=== PATIENT | male | born 1935 | race Caucasian/White ===

== ENCOUNTER 2019-01-28 15:53 | Emergency (ER) | payer OTHER, MEDICAID ==
[~2019-01-28] VITALS: Ht 175.3 cm; Wt 78.0 kg
[2019-01-28 15:55] VITALS: BP_SYST 177
[2019-01-28] MEDS ORDERED: DIPHENOXYLATE HCL/ATROP SULF 2.5 MG TAB PO ONE (16:30)
[2019-01-28 17:08] LABS: BILIRUBIN,URINE NEGATIVE (NEGATIVE); BLOOD, URINE 3+ (NEGATIVE); CLARITY/URINE SL HAZY (CLEAR); COLOR,URINE YELLOW (YELLOW); GLUCOSE,URINE NEGATIVE (NEGATIVE); KETONES,URINE TRACE (NEGATIVE); LEUKOCYTE ESTERASE ,URINE NEGATIVE (NEGATIVE); NITRITE, URINE NEGATIVE (NEGATIVE); PROTEIN URINE 2+ (NEGATIVE)
[2019-01-28 17:17] LABS: BACTERIA,URINE FEW /HPF (None Seen); MUCUS,URINE None Seen /LPF (None Seen); RBC,URINE 50-80 /HPF (0-3); WBC,URINE 0-3 /HPF (0-3)
[2019-01-28 17:19] LABS: ANION GAP 7 (5-15); CHLORIDE 103 mmol/L (98-107); CREATININE 1.29 mg/dL (0.55-1.30); GLUCOSE 122 mg/dL (70-99); POTASSIUM 4.8 mmol/L (3.5-5.1); SODIUM SERUM 136 mmol/L (136-145); UREA NITROGEN, BLOOD 18 mg/dL (8-21)
[2019-01-28 17:24] LABS: ALANINE AMINOTRANSFERASE 18 U/L (12-78); ALBUMIN 3.8 g/dL (3.4-4.8); ASPARTATE AMINOTRANSFERASE 18 U/L (10-37); TOTAL BILIRUBIN 0.6 mg/dL (0.0-1.0)
[2019-01-28 17:26] LABS: BASOPHILS % (AUTO) 0.3 % (0.0-2.0); HEMATOCRIT 38.6 % (36-54); HEMOGLOBIN 12.9 g/dL (14.0-18.0); LYMPHOCYTES # (AUTO) 0.2 K/uL (1.0-5.5); LYMPHOCYTES % (AUTO) 3.5 % (20.5-51.5); MEAN CORPUSCULAR HEMOGLOBIN 30 pg (27-31); MEAN CORPUSCULAR HGB CONC 34 % (32-36); MEAN CORPUSCULAR VOLUME 89 fL (79.0-98.0); MONOCYTES # (AUTO) 0.3 K/uL (0.0-1.0); MONOCYTES % (AUTO) 4.7 % (1.7-9.3); NEUTROPHILS # (AUTO) 6.1 K/uL (1.8-7.7); NEUTROPHILS % (AUTO) 91.5 % (40.0-70.0); PLATELET COUNT (AUTO) 130 K/uL (130-430); RED BLOOD CELL COUNT(AUTO) 4.36 MIL/uL (4.2-6.2); RED CELL DISTRIBUTION WIDTH 14.4 % (9.0-15.0); WHITE BLOOD COUNT (AUTO) 6.6 K/uL (4.8-10.8)
[2019-01-28 20:20] VITALS: BP_SYST 168
== END 2019-01-28 20:20 | disposition home or self-care (01) ==
LOC: SED 15:53
DX: K52.9 Noninfective gastroenteritis and colitis, unspecified (principal); R33.9 Retention of urine, unspecified
CPT/HCPCS: 36415; 71045; 80053; 81000-TC; 84484; 85025; 93005; 99284

== ENCOUNTER 2019-02-23 11:17 | Inpatient (IN) | payer OTHER, MEDICAID ==
[~2019-02-23] VITALS: Ht 175.3 cm; Wt 63.5 kg
[2019-02-23 11:17] VITALS: BP_SYST 153
[2019-02-23] MEDS ORDERED: NACL 0.9% 1,000 ML IV ONE ×2 (11:30→13:00)
[2019-02-23] MEDS ORDERED: ONDANSETRON HCL 4 MG/2 ML VIAL IVP ONE (11:30)
[2019-02-23 11:53] LABS: HEMATOCRIT 46.7 % (36-54); LYMPHOCYTES # (AUTO) 0.2 K/uL (1.0-5.5); LYMPHOCYTES % (AUTO) 1.5 % (20.5-51.5); MEAN CORPUSCULAR HEMOGLOBIN 30 pg (27-31); MEAN CORPUSCULAR HGB CONC 34 % (32-36); MEAN CORPUSCULAR VOLUME 88 fL (79.0-98.0); MONOCYTES # (AUTO) 1.4 K/uL (0.0-1.0); MONOCYTES % (AUTO) 12.8 % (1.7-9.3); NEUTROPHILS # (AUTO) 9.3 K/uL (1.8-7.7); NEUTROPHILS % (AUTO) 85.7 % (40.0-70.0); PLATELET COUNT (AUTO) 189 K/uL (130-430); RED BLOOD CELL COUNT(AUTO) 5.31 MIL/uL (4.2-6.2); WHITE BLOOD COUNT (AUTO) 10.8 K/uL (4.8-10.8)
[2019-02-23 12:08] LABS: ANION GAP 12 (5-15); CALCIUM 9.4 mg/dL (8.4-11.0); CHLORIDE 98 mmol/L (98-107); CREATININE 1.79 mg/dL (0.55-1.30); GLUCOSE 143 mg/dL (70-99); POTASSIUM 3.8 mmol/L (3.5-5.1); SODIUM SERUM 133 mmol/L (136-145); UREA NITROGEN, BLOOD 38 mg/dL (8-21)
[2019-02-23 12:24] LABS: ALANINE AMINOTRANSFERASE 26 U/L (12-78); ALBUMIN 3.1 g/dL (3.4-4.8); ASPARTATE AMINOTRANSFERASE 41 U/L (10-37); TOTAL BILIRUBIN 0.4 mg/dL (0.0-1.0)
[2019-02-23] MEDS ORDERED: ACETAMINOPHEN 500 MG TABLET PO ONE (12:30)
[2019-02-23] MEDS ORDERED: CIPR-211 PO (12:41)
[2019-02-23] MEDS ORDERED: TAMS-11 PO (12:41)
[2019-02-23] MEDS ORDERED: cefTRIAXone 1 GM IVPB PREMIX 50 ML IV ONE (13:00)
[2019-02-23 14:17] LABS: BILIRUBIN,URINE NEGATIVE (NEGATIVE); BLOOD, URINE 3+ (NEGATIVE); CLARITY/URINE HAZY (CLEAR); COLOR,URINE YELLOW (YELLOW); GLUCOSE,URINE NEGATIVE (NEGATIVE); KETONES,URINE NEGATIVE (NEGATIVE); LEUKOCYTE ESTERASE ,URINE 1+ (NEGATIVE); NITRITE, URINE NEGATIVE (NEGATIVE); PROTEIN URINE 2+ (NEGATIVE); UROBILINOGEN,URINE 0.2 (0.2-1.0)
[2019-02-23 14:30] LABS: BACTERIA,URINE MODERATE /HPF (None Seen); RBC,URINE 20-50 /HPF (0-3)
[2019-02-23 14:31] LABS: CALCIUM OXALATE CRYSTALS,UR 0-10 /HPF (None Seen); FINE GRANULAR CASTS,URINE 0-10 /LPF (None Seen)
[2019-02-23] MEDS ORDERED: ZOLPIDEM TARTRATE 5 MG TABLET PO PRN (15:00)
[2019-02-23] MEDS ORDERED: ONDANSETRON HCL 4 MG/2 ML VIAL IVP PRN (15:00)
[2019-02-23] MEDS ORDERED: POTASSIUM CHLORIDE 20 MEQ TAB.PRT.SR PO PRN (15:00)
[2019-02-23] MEDS ORDERED: MUPIROCIN 2% TOPICAL OINTMENT 22 GM NS PRN (15:00)
[2019-02-23] MEDS ORDERED: MAGNESIUM SULFATE 50 ML IV PRN (15:00)
[2019-02-23] MEDS ORDERED: MORPHINE 2 MG/ML INJ. SYRINGE IVP PRN ×2 (15:00)
[2019-02-23] MEDS ORDERED: LORazepam 2 MG/ML VIAL IVP PRN (15:00)
[2019-02-23] MEDS ORDERED: DOCUSATE SODIUM 100 MG CAPSULE PO PRN (15:00)
[2019-02-23] MEDS ORDERED: amLODIPine BESYLATE 10 MG TABLET PO ONE (15:00)
[2019-02-23] MEDS ORDERED: ACETAMINOPHEN 325 MG TABLET PO PRN (15:00)
[2019-02-23 15:04] VITALS: BP_SYST 135
[2019-02-23] MEDS ORDERED: cefTRIAXone 1 GM in D5W 50 ML IV SCH (16:00)
[2019-02-23 16:31] VITALS: BP_SYST 141
[2019-02-23] MEDS: NACL 0.9% 1,000 ML IV SCH (16:49)
[2019-02-23 20:00] VITALS: BP_SYST 152
[2019-02-23] MEDS: HEPARIN SODIUM,PORCINE 5000 UNITS/ML VIAL SUBCUT SCH (21:09)
[2019-02-23 23:34] VITALS: BP_SYST 141
[2019-02-24] MEDS: NACL 0.9% 1,000 ML IV SCH ×2 (00:57→08:45)
[2019-02-24 05:42] LABS: ALANINE AMINOTRANSFERASE 25 U/L (12-78); ALBUMIN 2.4 g/dL (3.4-4.8); ANION GAP 8 (5-15); ASPARTATE AMINOTRANSFERASE 38 U/L (10-37); CALCIUM 7.8 mg/dL (8.4-11.0); CHLORIDE 108 mmol/L (98-107); CREATININE 1.19 mg/dL (0.55-1.30); GLUCOSE 94 mg/dL (70-99); POTASSIUM 4.1 mmol/L (3.5-5.1); SODIUM SERUM 141 mmol/L (136-145); THYROID STIMULATING HORMONE 1.31 uIu/mL (0.36-3.74); TOTAL BILIRUBIN 0.2 mg/dL (0.0-1.0); UREA NITROGEN, BLOOD 25 mg/dL (8-21)
[2019-02-24 06:11] LABS: BASOPHILS % (AUTO) 0.2 % (0.0-2.0); EOSINOPHILS % (AUTO) 0.1 % (0.0-4.0); HEMATOCRIT 37.9 % (36-54); HEMOGLOBIN 12.9 g/dL (14.0-18.0); LYMPHOCYTES # (AUTO) 0.5 K/uL (1.0-5.5); LYMPHOCYTES % (AUTO) 6.5 % (20.5-51.5); MEAN CORPUSCULAR HEMOGLOBIN 30 pg (27-31); MEAN CORPUSCULAR HGB CONC 34 % (32-36); MEAN CORPUSCULAR VOLUME 88 fL (79.0-98.0); MONOCYTES # (AUTO) 1.1 K/uL (0.0-1.0); MONOCYTES % (AUTO) 14.1 % (1.7-9.3); NEUTROPHILS % (AUTO) 79.1 % (40.0-70.0); PLATELET COUNT (AUTO) 146 K/uL (130-430); RED BLOOD CELL COUNT(AUTO) 4.31 MIL/uL (4.2-6.2); WHITE BLOOD COUNT (AUTO) 7.6 K/uL (4.8-10.8)
[2019-02-24 06:44] LABS: CHOLESTEROL 124 mg/dL (<200); HDL CHOLESTEROL 25 mg/dL (>45); LDL CHOLESTEROL 86 mg/dL (<100); TRIGLYCERIDES 84 mg/dL (30-150)
[2019-02-24 08:00] VITALS: BP_SYST 159
[2019-02-24] MEDS: HEPARIN SODIUM,PORCINE 5000 UNITS/ML VIAL SUBCUT SCH (08:45)
[2019-02-24] MEDS ORDERED: TAMSULOSIN HCL 0.4 MG CAP PO SCH (09:00)
[2019-02-24] MEDS ORDERED: amLODIPine BESYLATE 10 MG TABLET PO SCH (09:00)
[2019-02-24 11:39] VITALS: BP_SYST 139
[2019-02-24 13:40] VITALS: BP_SYST 139
[2019-02-24] MEDS ORDERED: MENTHOL/ZINC OXIDE 113 GM OINT. TP PRN ×2 (14:15→16:45)
== END 2019-02-24 15:10 | disposition short-term general hospital (02) | DRG 280 ==
LOC: SED 11:17 → STU 14:08
PROVIDERS: ADMIT General Practice; ATTEND General Practice
DX: I21.A1 Myocardial infarction type 2 (principal); N17.0 Acute kidney failure with tubular necrosis; N39.0 Urinary tract infection, site not specified; E44.0 Moderate protein-calorie malnutrition; E87.1 Hypo-osmolality and hyponatremia; G90.9 Disorder of the autonomic nervous system, unspecified; G30.9 Alzheimer's disease, unspecified; F02.80 Dementia in other diseases classified elsewhere, unspecified severity, without behavioral disturbance, psychotic disturbance, mood disturbance, and anxiety; N40.1 Benign prostatic hyperplasia with lower urinary tract symptoms; I95.9 Hypotension, unspecified; I10 Essential (primary) hypertension; E86.0 Dehydration; Z96.641 Presence of right artificial hip joint; G90.8 Other disorders of autonomic nervous system; Z86.73 Personal history of transient ischemic attack (TIA), and cerebral infarction without residual deficits; Z85.46 Personal history of malignant neoplasm of prostate; I25.2 Old myocardial infarction; Z68.20 Body mass index [BMI] 20.0-20.9, adult
CPT/HCPCS: 36415; 70450-TC; 71045; 80053; 80061; 81000-TC; 82962; 83036; 83605; 83735-TC; 83880; 84443-TC; 84484; 85025; 87040-TC; 87086; 87186-TC; 93005; 93306; 93880; 96361; 96365; 96375; 99285; G0378; J0696; J1644; J2405; J7030; J7060